=== PATIENT | female | born 1960 | race Caucasian/White ===

== ENCOUNTER 2018-05-22 21:40 | Emergency (ER) | payer SELFPAY ==
[~2018-05-22] VITALS: Ht 149.9 cm; Wt 68.2 kg
[~2018-05-22 21:40] MED LIST: LISI-170 PO; TRAM50TA2 PO
[2018-05-22 22:31] VITALS: BP 146/79
== END 2018-05-22 22:32 | disposition home or self-care (01) ==
LOC: ED 22:25
DX: K04.7 Periapical abscess without sinus (principal); I10 Essential (primary) hypertension; G89.29 Other chronic pain; M54.9 Dorsalgia, unspecified
CPT/HCPCS: 99283